=== PATIENT | female | born 1995 ===

== ENCOUNTER 2021-03-19 15:38 | Inpatient (IN) | payer OTHER ==
[~2021-03-19] VITALS: Ht 175.3 cm; Wt 122.9 kg
[2021-04-03] VITALS (11 sets, daily range): BP systolic 115–140; BP diastolic 67–90; PULSE 65–79; TEMP 98–98.7
[2021-04-03] MEDS ORDERED: MULTIPLE VITAMI1 TA5 PO (06:25)
--- NOTE | 2021-04-03 09:55 | NUR ---
Patient up from OR, drowsy but arouses to voice. Spouse at bedside. Post op fluids infusing per orders, post op VSS. Lap sites x 4 with edges well approximated. KEYLA drain with serosanguinous drainage noted. No further needs at this time.
--- NOTE | 2021-04-03 12:43 | NUR ---
Patient continues to complain of increased pain. States pain is better when she is not moving but is 10/10 no relief from [place]. Additional dose of pain meds given at this time.
--- NOTE | 2021-04-03 17:04 | NUR ---
Patient complains of stabbing abdominal pain 9/10 and nausea, medications given per orders. No further needs at this time.
--- NOTE | 2021-04-03 18:34 | NUR ---
Patient doing well post op, has been up ambulating to restroom. Tolerating small amounts of fluids. KELYA with serosangunous drainage. Spouse at bedside throughout the day. Denies further needs at this time. Will report off to shift commander.
--- NOTE | 2021-04-03 21:13 | NUR ---
PATIENT STATES NAUSEA IS LESS "IF I DON'T MOVE" RESTING WITH EYES CLOSED. HAS STOPPED TAKING ORAL SIPS AT THIS TIME DUE TO COMPLAINTS OF NAUSEA WITH SOME EMESIS.
[2021-04-04 00:33] VITALS: BP 113/54; PULSE 64; TEMP 98
[2021-04-04 03:43] VITALS: BP 135/64; PULSE 65; TEMP 98.3
--- NOTE | 2021-04-04 06:27 | NUR ---
PATIENT REPORTS NAUSEA WAS CONSTANT EARLIER IN NIGHT/EVENING BUT NOW IS INTERMITTENT AND SHE IS ABLE TO SLEEP INBETWEEN ANTI NAUSEA MED DOSING. REPORTS ALSO THAT SURGICAL PAIN IS "TOLERABLE"
--- NOTE | 2021-04-04 07:22 | NUR ---
CHANGE OF SHIFT REPORT GIVEN TO DAY SHIFT NURSE, TY THOMSON.
--- NOTE | 2021-04-04 08:00 | NUR ---
PATIENT IS ORIENTED BUT DROWSY. PATIENT C/O ISSUES WITH NAUSEA POST OP. GAVE PRN IV ZOFRAN. PATIENT REPORTS ABD PAIN IN BETTER AND IS MOVING AROUND IN ROOM INDEPENDENTLY. GAIT STEADY. ABD LAP SITES X4 ARE CD&I AND METALLURGIST PROCESS. ABD IS ROUND, SOFT AND WITH HYPO ACTIVE BOWL SOUNDS. PATIENT REPORTS SHE PASSED GAS FOR THE FIRST TIME POST OP THIS AM, NO BM YET. ICE CHIPS AT BEDSIDE. HEAD TO TOE ASSESSMENT COMPLETE. NO OTHER NEEDS AT THIS TIME. CALL LIGHT IN REACH.
[2021-04-04 09:00] VITALS: BP 122/70; PULSE 63; TEMP 99.7
--- NOTE | 2021-04-04 11:43 | NUR ---
Frame Catcher met with patient to discuss discharge planning. Patient's , Zander (ph#[phone]) is at bedside, but is asleep. Patient lives on [address] [place] with her , who is active duty . Patient receives primary care and medications from [facility]. Patient does not use any DME and is independent with [facility]. Patient does not have Advance Directives and was not interested in setting up DPO[facility] at this time. Patient plans to return home upon discharge. Discharge Plan: Home
--- NOTE | 2021-04-04 12:50 | NUR ---
PATIENT'S C/O ABD PAIN AND REQUESTING SOMETHING FOR PAIN. PATIENT WENT ON TO SAY THAT PAIN IS BETTER THAN YESTERDAY AND IT IS MOSTLY THE N/V THAT IS CAUSING HER PAIN. GAVE PRN IV DILAUDID. CALL [facility] TO MAKE PRN IV PHENERGAN INFUSION.
[2021-04-04 13:45] VITALS: BP 124/63; PULSE 75; TEMP 99
--- NOTE | 2021-04-04 13:50 | NUR ---
Initial visit attempt; Patient resting, Application Software Developer left card to make sure Norah is aware of there being spiritual care available at [facility]. Application Software Developer offered God's blessings and information as to how to reach a Application Software Developer.
[2021-04-04 15:46] VITALS: BP 121/70; PULSE 72; TEMP 99.5
[2021-04-04] MEDS ORDERED: NORCO 325 MG-51 TAB PO (17:51)
[2021-04-04] MEDS ORDERED: PROMETHAZINE12.5 M5 PO (17:52)
--- NOTE | 2021-04-04 18:35 | NUR ---
PATIENT DISCHARGING HOME VIA WC TO PERSONAL VEHICLE WITH WITH SPOUCE. GAVE DISCHARGE INSTRUCTIONS, SENT HOME A TAKE HOME PACK OF NORCO (4 TABS) AND CALLED IN PHENERGAN SCRIPT TO [facility]IZA [facility]BY PER PATIENT. ANSWERED QUESTIONS/CONCERNS. DC'D RIGHT WRIST IV, COVERED SITE WITH G[place] [facility] [place]. PATIENT DISCHARGED.
== END 2021-04-04 18:35 | disposition home or self-care (01) | DRG 621 ==
LOC: INPTSU 04-03 05:16 → SURG 04-03 07:30
PROVIDERS: ADMIT Surgery
PROC: 0DB64Z3 Excision of Stomach, Percutaneous Endoscopic Approach, Vertical (ICD-10-PCS; principal; 2021-04-03 07:30)
DX: E66.01 Morbid (severe) obesity due to excess calories (principal); Z68.41 Body mass index [BMI] 40.0-44.9, adult
CPT/HCPCS: J0330; J0690; J1100; J1170; J2405; J2550; J2704; J3010; J7120